=== PATIENT | female | born 1960 | race Caucasian/White ===

== ENCOUNTER 2018-07-19 11:53 | Outpatient (CLI) | payer OTHER, BC ==
[2018-07-19] MEDS ORDERED: LIDOCAINE-MPF 1%, 5ML ONE (12:31)
== END 2018-07-19 23:59 | disposition home or self-care (01) ==
LOC: RAD 11:53
PROVIDERS: ATTEND Genetic Counselor, MS
DX: E04.1 Nontoxic single thyroid nodule (principal)
CPT/HCPCS: 10005; 88112; 88173

== ENCOUNTER 2018-08-16 07:49 | Outpatient (CLI) | payer OTHER, BC ==
[2018-08-16] MEDS ORDERED: MESA800T9 PO (08:37)
[2018-08-16] MEDS ORDERED: CAPT100T2 PO (08:37)
[2018-08-16] MEDS ORDERED: TRIA1CAP3 PO (08:37)
[2018-08-16] MEDS ORDERED: AMLO-150 PO (08:37)
[2018-08-16] MEDS ORDERED: METH750T2 PO (08:37)
[2018-08-16] MEDS ORDERED: CITA20TA6 PO (08:37)
[2018-08-16 09:26] LABS: ALANINE AMINOTRANSFERASE 26 U/L (12-78); ALBUMIN 4.3 g/dL (3.4-5.0); ANION GAP 7 mmol/L (5-15); CALCIUM 9.6 mg/dL (8.5-10.1); CHLORIDE 103 mmol/L (98-107)
[2018-08-16 09:28] LABS: ALKALINE PHOSPHATASE 44 U/L (45-117); BILIRUBIN,TOTAL 0.5 mg/dL (0.2-1.0); TOTAL PROTEIN 7.2 g/dL (6.4-8.2)
== END 2018-08-16 23:59 | disposition home or self-care (01) ==
LOC: STAR 07:49
PROVIDERS: ATTEND Surgery
DX: Z01.818 Encounter for other preprocedural examination (principal); E04.1 Nontoxic single thyroid nodule
CPT/HCPCS: 36415; 80053; 84432; 86800